=== PATIENT | male | born 1990 | race Caucasian/White ===

== ENCOUNTER 2017-05-12 09:08 | Inpatient (IN) | payer OTHER ==
[~2017-05-12] VITALS: Ht 188 cm; Wt 89.5 kg
[2017-05-12 10:26] VITALS: BP 125/69
--- NOTE | 2017-05-12 10:30 | NUR ---
26 year old MALE admitted to room # 532 for stabilization. Reports an addiction to ALCOHOL,METH, AND THC. last used THC THIS MORNING, METH 2 DAYS AGO, AND ALCOHOL 2 DAYS AGO. Compliant with admission procedure. Patient denies any anxiety, but looks about room, unable to focus eyes on nurse during interview. See assessment forms for additional information about patient status.
[2017-05-12 12:00] VITALS: BP 113/55
[2017-05-12 12:16] LABS: BASO # 0.1 10*3/uL (0.0-0.1); BASO % 0.4 % (0.0-1.0); EOS # 0.3 10*3/uL (0.0-0.4); HEMATOCRIT 41.7 % (42.0-52.0); HEMOGLOBIN 14.4 g/dl (14.0-18.0); LYMPH # 3.2 10*3/uL (1.3-4.4); LYMPH % 26.4 % (27.0-41.0); MEAN CELL VOLUME 90.5 fl (80.0-94.0); MEAN CORPUSCULAR HGB 31.2 pg (27.0-31.0); MEAN CORPUSCULAR HGB CONC 34.5 g/dl (33.0-37.0); MEAN PLATELET VOLUME 11.2 fl (9.6-12.3); MONO # 0.8 10*3/uL (0.1-1.0); MONO % 6.6 % (3.0-9.0); NEUT # 7.9 10*3/uL (2.3-7.9); NEUT % 63.9 % (47.0-73.0); PLATELET COUNT AUTOMATED 191 10*3/uL (130-400); RED BLOOD COUNT 4.61 10*6/uL (4.50-5.90); RED CELL DISTRI WIDTH 12.3 % (0-14.5); WHITE BLOOD COUNT 12.3 10*3/uL (4.8-10.8)
[2017-05-12 12:31] LABS: ALBUMIN 3.6 gm/dl (3.1-4.5); ALKALINE PHOSPHATASE 102 U/L (45-117); BUN 17 mg/dl (7-24); CHLORIDE 107 mmol/L (98-107); CREATININE 0.92 mg/dL (0.70-1.30); POTASSIUM 4.5 mmol/L (3.5-5.1); SGOT/AST 18 IU/L (3-35); SGPT/ALT 32 U/L (12-78); SODIUM 141 mmol/L (136-145); TOTAL PROTEIN 6.8 gm/dL (6.4-8.2)
[2017-05-12 12:41] LABS: BILIRUBIN NEGATIVE (NEGATIVE); BLOOD NEGATIVE (NEGATIVE); CLARITY CLEAR (CLEAR); COLOR YELLOW (YELLOW); GLUCOSE NEGATIVE (NEGATIVE); KETONE NEGATIVE (NEGATIVE); LEUKO ESTERASE NEGATIVE (NEGATIVE); NITRITE NEGATIVE (NEGATIVE); UROBILINOGEN 0.2 E.U./dl (0.2-1.0)
[2017-05-12 12:42] LABS: URINE AMPHETAMINES > 1000 (1000ng/ml); URINE BARBITURATES < 200 (200ng/ml); URINE BENZODIAZEPINES < 200 (200ng/ml); URINE CANNABINOIDS (THC) > 50 (50ng/ml); URINE COCAINE < 300 (300ng/ml); URINE METHADONE < 300 (300ng/ml); URINE OPIATES < 300 (300ng/ml)
[2017-05-12 12:51] LABS: URINE PHENCYCLIDINE < 25 (25ng/ml)
[2017-05-12 13:12] LABS: RBC 0-2 rbc/hpf (0-2)
[2017-05-12 13:13] LABS: WBC 0-2 wbc/hpf (0-5)
--- NOTE | 2017-05-12 13:30 | NUR ---
IV started right hand with #22 angiocath after 1 attempts. The IV site was prepped with Chloraprep. Heparin lock attached. IV solution MVI infusing at 100 cc/hr. Sterile dressing applied. Patient tolerated precedure well. Procedure performed according to [facility] policy & procedure. IRINA RECINOS
--- NOTE | 2017-05-12 14:14 | NUR ---
PATIENTS WANTS TO FOLLOW-UP WITH THE [facility] IN [place] FOR HIS AFTERCARE PLAN. PABLO ALCOCER B.A. BUSINESS REPORTER
[2017-05-12 16:00] VITALS: BP 92/65
--- NOTE | 2017-05-12 17:42 | NUR ---
PATIENT MEDICATED WITH PO BENTYL FOR STOMACH CRAMPING AND PO VISTARIL FOR ANXIETY
--- NOTE | 2017-05-12 18:29 | NUR ---
PATIENT STATES MEDICATION EFFECTIVE
[2017-05-12 20:00] VITALS: BP 119/55
[2017-05-13] VITALS: BP 105/51
--- NOTE | 2017-05-13 04:46 | NUR ---
PATIENT STATES THAT HE IS HOMELESS AND WANTS TO GET STRAIGHTENED OUT. PATIENT STATED THAT HE HAD SNORTED METH. HE STATES THAT HE HAS TO GE BETTER AND GO TO REHAB OR POSS. GO TO [facility]. PATIENT VERY PLEASANT, SLEPT MOST OF THE NIGHT.
--- NOTE | 2017-05-13 06:15 | NUR ---
PATIENT GIVEN BENTYL FOR STOMACH CRAMPING, 8. GIVEN PER PRN ORDER.
--- NOTE | 2017-05-13 06:21 | NUR ---
24 HR chart check completed.
[2017-05-13 06:30] LABS: BASO # 0.1 10*3/uL (0.0-0.1); BASO % 0.8 % (0.0-1.0); EOS # 0.3 10*3/uL (0.0-0.4); EOS % 2.8 % (1.0-4.0); HEMATOCRIT 43.3 % (42.0-52.0); HEMOGLOBIN 14.6 g/dl (14.0-18.0); LYMPH # 4.5 10*3/uL (1.3-4.4); LYMPH % 43.1 % (27.0-41.0); MEAN CELL VOLUME 92.9 fl (80.0-94.0); MEAN CORPUSCULAR HGB 31.3 pg (27.0-31.0); MEAN CORPUSCULAR HGB CONC 33.7 g/dl (33.0-37.0); MEAN PLATELET VOLUME 11.9 fl (9.6-12.3); MONO # 0.8 10*3/uL (0.1-1.0); MONO % 7.3 % (3.0-9.0); NEUT # 4.7 10*3/uL (2.3-7.9); NEUT % 44.9 % (47.0-73.0); PLATELET COUNT AUTOMATED 197 10*3/uL (130-400); RED BLOOD COUNT 4.66 10*6/uL (4.50-5.90); RED CELL DISTRI WIDTH 12.5 % (0-14.5); WHITE BLOOD COUNT 10.4 10*3/uL (4.8-10.8)
[2017-05-13 06:56] LABS: BUN 14 mg/dl (7-24); CHLORIDE 108 mmol/L (98-107); CHOLESTEROL 94 mg/dL (<200); CREATININE 0.94 mg/dL (0.70-1.30); HDL CHOLESTEROL 39 mg/dl (40-60); LDL CHOLESTEROL 24 mg/dL (9-159); POTASSIUM 4.7 mmol/L (3.5-5.1); SODIUM 143 mmol/L (136-145); TRIGLYCERIDES 155 mg/dl (<150); VLDL CHOLESTEROL 31 mg/dL (6-40)
[2017-05-13 08:00] VITALS: BP 109/44
[2017-05-13 08:11] LABS: VITAMIN D, 25-HYDROXY 14.7 ng/mL (30-100)
--- NOTE | 2017-05-13 08:13 | NUR ---
MEDICATED WITH VISTARIL FOR PT'S COMPLAINTS OF MILD RESTLESSNESS. WILL MONITOR FOR EFFECTIVENESS.
--- NOTE | 2017-05-13 09:47 | NUR ---
PT STATES VISTARIL WAS EFFECTIVE, RESTING MORE COMFORTABLY AT THIS TIME.
--- NOTE | 2017-05-13 12:28 | NUR ---
PATIENT WNATS TO GO TO THE [facility] IN [place] FOR HIS AFTERCARE PLAN. PABLO ALCOCER B.A. HOSPICE VOLUNTEER COORDINATOR
--- NOTE | 2017-05-13 12:55 | NUR ---
PT REQUESTING TO HAVE SHOT BLAST EQUIPMENT OPERATOR REMOVED TO SHOWER, SPOKE WITH DR BALTAZAR, STATES OK TO REMOVE MONITOR TO SHOWER.
[2017-05-13 16:00] VITALS: BP 113/95
--- NOTE | 2017-05-13 17:45 | NUR ---
PT COMPLAINING OF RESTLESSNESS AND MILD TREMORS. MEDICATED WITH IV ATIVAN PER PRN ORDER. WILL MONITOR FOR EFFECTIVENESS.
[2017-05-13 20:00] VITALS: BP 120/51
--- NOTE | 2017-05-13 23:36 | NUR ---
IV STARTED IN RIGHT WRIST. SITE CLEANED WITH CHLOROPREP, 20 GA PLACED IN WRIST AND SECURED. FLUSHES EASILY WITH NORMAL SALINE, NO SIGNS/ SYMPTOMS OF INFILTRATE.
[2017-05-14] VITALS: BP 124/96
--- NOTE | 2017-05-14 00:31 | NUR ---
PATIENT REQUESTED MEDICATION TO HELP HIM SLEEP, DESYREL GIVEN PER PRN ORDER.
--- NOTE | 2017-05-14 03:48 | NUR ---
PATIENT LYING IN BED SLEEPING. PATIENT HAD BEEN UP WALKING IN HALLWAY TALKING TO OTHERS EARLIER. IV IN RIGHT WRIST INTACT. PATIENT HAD ASKED FOR DESYREL EARLIER, APPEARS TO BE EFFECTIVE, EYES CLOSED.M SKIN WARM, DRY AND PINK.
[2017-05-14 08:00] VITALS: BP 118/72
--- NOTE | 2017-05-14 10:18 | NUR ---
MEDICATED WITH VISTARIL FOR PT'S COMPLAINTS OF MILD RESTLESSNESS. WILL MONITOR FOR EFFECTIVENESS. PT DOES STATE HE IS FEELING MUCH BETTER THAN YETERDAY, HIS ONLY COMPLAINTS IS HE WANTS THE PEARL GLUE DRIER TAKEN OFF.
--- NOTE | 2017-05-14 11:30 | NUR ---
PT RESTING IN BED COMFORTABLY, STATES HE FEELS LESS RESTLESS. VISTARIL EFFECTIVE.
--- NOTE | 2017-05-14 12:06 | NUR ---
PT REQUESTING TO REMOVE PHYTOPATHOLOGY TEACHER TO SHOWER. SPOKE WITH MARTHA, STATES OK TO REMOVE, BUT MUST PUT BACK ON AFTER SHOWER.
--- NOTE | 2017-05-14 12:15 | NUR ---
SECURITY REPRESENTATIVE REMOVED FOR PT TO SHOWER PER ORDER. WILL REAPPLY WHEN HE IS OUT.
[2017-05-14 12:19] VITALS: BP 136/59
--- NOTE | 2017-05-14 14:17 | NUR ---
PATIENT IS GOING TO THE [facility] IN [place] FOR HIS AFTERCARE PLAN. PATIENT AGREES AND UNDERSTANDS HIS AFTERCARE PLAN. PABLO ALCOCER B.A. RAILROAD SURVEYOR
--- NOTE | 2017-05-14 16:00 | NUR ---
Patient resting. Responding to scheduled medications with fewer complaints of pain and anxiety.
[2017-05-14 16:24] VITALS: BP 131/53
--- NOTE | 2017-05-14 18:00 | NUR ---
PT COMPLAINING OF FEELING VERY AGITATED AND AGRIVATED, SOME MILD TREMORS NOTED. MEDICATED WITH ATIVAN PER PRN ORDER. WILL MONITOR FOR EFFECTIVENESS. CALL LIGHT WITHIN REACH.
[2017-05-14 20:00] VITALS: BP 119/44
--- NOTE | 2017-05-14 20:00 | NUR ---
ASSUMED CARE OF PATIENT. ASSESSMENT COMPLETE. RESTING IN BED. NO COMPLAINTS AT THIS TIME. CALL LIGHT IN REACH. WILL CONTINUE TO MONITOR.
--- NOTE | 2017-05-14 20:59 | NUR ---
MONITOR REMOVED PER ORDER FOR PATIENT TO SHOWER AT THIS TIME.
--- NOTE | 2017-05-14 22:00 | NUR ---
MEDICATED WITH PRN TRAZADONE PER PT REQUEST FOR HELP TO SLEEP.
[2017-05-15] VITALS: BP 124/57
--- NOTE | 2017-05-15 05:49 | NUR ---
PRN ROBAXIN AND ATIVAN GIVEN FOR MUSCLE CRAMPS AND ANXIETY, CALL LIGHT IN REACH WILL MONITOR EFFECT.
[2017-05-15 08:00] VITALS: BP 122/54
--- NOTE | 2017-05-15 08:23 | NUR ---
Shift chart check completed.
[2017-05-15] MEDS ORDERED: ATARAX,VISTARIL50 MG PO (10:41)
--- NOTE | 2017-05-15 11:34 | NUR ---
WENT OVER D/C INSTRUCTIONS WITH PATIENT. REMOVED IV WITH CATHETER INTACT AND BLEEDING CONTROLLED. PATIENT GIVEN SCRIPT. PATIENT VERBALIZED UNDERSTANDING TO FOLLOW UP WITH [facility]. PATIENT AMBULATED TO THE EXIT WITH GRANDMOTHER. PATIENT D/C HOME.
== END 2017-05-15 11:34 | disposition home or self-care (01) | DRG 897 ==
LOC: 5E 09:08
PROVIDERS: Internal Medicine; Internal Medicine Nephrology; ADMIT Internal Medicine
DX: F10.230 Alcohol dependence with withdrawal, uncomplicated (principal); D72.810 Lymphocytopenia; D72.829 Elevated white blood cell count, unspecified; E66.3 Overweight; F12.10 Cannabis abuse, uncomplicated; F15.10 Other stimulant abuse, uncomplicated; G47.00 Insomnia, unspecified; Z68.25 Body mass index [BMI] 25.0-25.9, adult; Z71.6 Tobacco abuse counseling; Z72.0 Tobacco use

== ENCOUNTER 2017-07-26 14:55 | Inpatient (IN) | payer OTHER ==
[~2017-07-26] VITALS: Ht 188 cm; Wt 92.2 kg
[~2017-07-26 14:55] MED LIST: ATARAX,VISTARIL50 MG PO
[2017-07-26 15:55] VITALS: BP 157/81
[2017-07-26 16:00] VITALS: BP 126/72
[2017-07-26 16:35] LABS: BASO # 0.1 10*3/uL (0.0-0.1); BASO % 0.7 % (0.0-1.0); EOS # 0.2 10*3/uL (0.0-0.4); EOS % 1.8 % (1.0-4.0); HEMATOCRIT 46.6 % (42.0-52.0); HEMOGLOBIN 15.9 g/dl (14.0-18.0); LYMPH # 3.6 10*3/uL (1.3-4.4); LYMPH % 33.1 % (27.0-41.0); MEAN CORPUSCULAR HGB 31.1 pg (27.0-31.0); MEAN CORPUSCULAR HGB CONC 34.1 g/dl (33.0-37.0); MEAN PLATELET VOLUME 11.2 fl (9.6-12.3); MONO # 0.9 10*3/uL (0.1-1.0); NEUT # 6.1 10*3/uL (2.3-7.9); NEUT % 55.6 % (47.0-73.0); PLATELET COUNT AUTOMATED 196 10*3/uL (130-400); RED BLOOD COUNT 5.12 10*6/uL (4.50-5.90); RED CELL DISTRI WIDTH 12.1 % (0-14.5)
[2017-07-26 16:42] LABS: INTERNATIONAL NORM RATIO 0.9 (2.0-3.5)
[2017-07-26 16:51] LABS: ALBUMIN 3.8 gm/dl (3.1-4.5); ALKALINE PHOSPHATASE 93 U/L (45-117); BUN 10 mg/dl (7-24); CHLORIDE 106 mmol/L (98-107); CREATININE 0.95 mg/dL (0.70-1.30); POTASSIUM 4.3 mmol/L (3.5-5.1); SGOT/AST 16 IU/L (3-35); SGPT/ALT 25 U/L (12-78); SODIUM 141 mmol/L (136-145); TOTAL PROTEIN 7.4 gm/dL (6.4-8.2)
[2017-07-26 16:52] LABS: BILIRUBIN NEGATIVE (NEGATIVE); BLOOD NEGATIVE (NEGATIVE); CLARITY CLEAR (CLEAR); COLOR YELLOW (YELLOW); GLUCOSE NEGATIVE (NEGATIVE); KETONE NEGATIVE (NEGATIVE); LEUKO ESTERASE NEGATIVE (NEGATIVE); NITRITE NEGATIVE (NEGATIVE); PH 5.5 (5.0-9.0); SPECIFIC GRAVITY <= 1.005 (1.005-1.030); UROBILINOGEN 0.2 E.U./dl (0.2-1.0)
[2017-07-26 16:58] LABS: URINE AMPHETAMINES < 1000 (1000ng/ml); URINE BARBITURATES < 200 (200ng/ml); URINE BENZODIAZEPINES < 200 (200ng/ml); URINE CANNABINOIDS (THC) > 50 (50ng/ml); URINE COCAINE < 300 (300ng/ml); URINE METHADONE < 300 (300ng/ml); URINE OPIATES < 300 (300ng/ml); URINE PHENCYCLIDINE < 25 (25ng/ml)
[2017-07-26 17:01] LABS: BACTERIA TRACE; EPITHELIAL CELLS 0-2; RBC 0-2 rbc/hpf (0-2); WBC 0-2 wbc/hpf (0-5)
[2017-07-27 08:08] LABS: HIV 1+2 AB + HIV1 P24 AG Non Reactive (Non Reactive)
[2017-07-27 09:09] LABS: HEPATITIS B SURFACE AG Negative (Negative); HEPATITIS C VIRUS ANTIBODY <0.1 s/co (0.0-0.9)
== END 2017-07-26 18:20 | disposition left against medical advice (07) | DRG 894 ==
LOC: 4E 14:55
PROVIDERS: Family Medicine; Internal Medicine
DX: F10.239 Alcohol dependence with withdrawal, unspecified (principal); F15.20 Other stimulant dependence, uncomplicated; F12.10 Cannabis abuse, uncomplicated; F17.210 Nicotine dependence, cigarettes, uncomplicated; F14.10 Cocaine abuse, uncomplicated; D72.829 Elevated white blood cell count, unspecified; D72.810 Lymphocytopenia; E66.3 Overweight; Z53.21 Procedure and treatment not carried out due to patient leaving prior to being seen by health care provider; Z71.6 Tobacco abuse counseling; Z68.26 Body mass index [BMI] 26.0-26.9, adult